=== PATIENT | female | born 1980 | race Caucasian/White ===

== ENCOUNTER 2024-10-31 02:19 | Outpatient (RCR) | payer BC, SELFPAY ==
[2024-10-17] MEDS: Normal Saline Flush 10 ML SYR IVP (10:35)
[2024-10-17 10:44] LABS: Abs Immature Grans 0.03 10^3/uL (0.0-0.06); HCT 31.6 % (36.0-46.0); HGB 9.8 g/dL (11.2-15.7); Immature Grans % 0.4 %; MCH 25.1 pg (27.0-33.0); MCHC 31.0 % (32.0-36.0); MCV 81 fL (80-95); MPV 9.1 fL (8.0-11.0); Platelet Count 267 10^3/uL (130-400); RBC 3.90 10^6/uL (3.93-5.22); WBC 7.17 10^3/uL (4.4-10.8)
[2024-10-17 10:58] LABS: ALT 25 U/L (14-59); AST 17 U/L (15-37); Albumin 3.6 g/dL (3.4-5.0); Alkaline Phosphatase 72 U/L (46-116); Anion Gap 11.9 mmol/L (3-11); BUN 21 mg/dL (7-18); Bilirubin, Total 0.5 mg/dL (0.2-1.0); CO2 27.1 mmol/L (21.0-32.0); Calcium 9.2 mg/dL (8.5-10.1); Chloride 102 mmol/L (98-107); Estimated GFR 92.54 (mL/min/1.73m2); Glucose 166 mg/dL (74-106); Potassium 3.5 mmol/L (3.5-5.1); Sodium 141 mmol/L (136-145); Total Protein 7.6 g/dL (6.4-8.2)
[2024-10-17 11:07] LABS: Anisocytosis 2+; Microcytosis 1+
[2024-10-17 22:38] LABS: CEA 1.5 ng/mL (See Note)
[2024-10-19 12:51] VITALS: BP 129/75; PULSE 71; RESP 16; TEMP 36.9; O2SAT 97
[2024-10-19] MEDS: Normal Saline Flush 10 ML SYR IVP (13:00)
[2024-10-31] MEDS: Normal Saline Flush 10 ML SYR IVP (10:47)
[2024-10-31 10:53] LABS: Abs Immature Grans 0.01 10^3/uL (0.0-0.06); HCT 28.5 % (36.0-46.0); HGB 8.9 g/dL (11.2-15.7); Immature Grans % 0.3 %; MCH 25.1 pg (27.0-33.0); MCHC 31.2 % (32.0-36.0); MCV 81 fL (80-95); MPV 9.5 fL (8.0-11.0); Platelet Count 204 10^3/uL (130-400); RBC 3.54 10^6/uL (3.93-5.22); RDW 21.5 % (11.7-14.6); RDW-SD 62.4 fL; WBC 3.72 10^3/uL (4.4-10.8)
[2024-10-31 11:10] LABS: Anisocytosis 2+
[2024-10-31 11:12] LABS: ALT 26 U/L (14-59); AST 18 U/L (15-37); Albumin 3.3 g/dL (3.4-5.0); Alkaline Phosphatase 70 U/L (46-116); Anion Gap 8.1 mmol/L (3-11); BUN 18 mg/dL (7-18); Bilirubin, Total 0.6 mg/dL (0.2-1.0); CO2 27.9 mmol/L (21.0-32.0); Calcium 9.0 mg/dL (8.5-10.1); Chloride 105 mmol/L (98-107); Estimated GFR 92.54 (mL/min/1.73m2); Glucose 210 mg/dL (74-106); Potassium 3.7 mmol/L (3.5-5.1); Sodium 141 mmol/L (136-145); Total Protein 6.8 g/dL (6.4-8.2)
[2024-10-31 17:59] LABS: CEA 0.9 ng/mL (See Note)
== END 2024-10-31 23:59 | disposition home or self-care (01) ==
LOC: INF 02:19
PROVIDERS: Nurse Practitioner Family; PCP Family Medicine; Visit Provider Internal Medicine Hematology & Oncology
DX: C20 Malignant neoplasm of rectum (principal)
CPT/HCPCS: 36591; 80053; 96523; 82378; 85025

== ENCOUNTER 2024-11-02 00:06 | Outpatient (RCR) | payer BC, SELFPAY ==
[2024-11-02 12:42] VITALS: BP 115/77; PULSE 83; RESP 20; TEMP 36.4; O2SAT 98
[2024-11-02] MEDS: Normal Saline Flush 10 ML SYR IVP (14:35)
== END 2024-12-01 23:59 | disposition home or self-care (01) ==
LOC: INF 00:06
PROVIDERS: PCP Family Medicine; Visit Provider Internal Medicine Hematology & Oncology
DX: Z45.2 Encounter for adjustment and management of vascular access device (principal)
CPT/HCPCS: 96523

== ENCOUNTER 2024-11-30 00:31 | Outpatient (RCR) | payer BC, SELFPAY ==
[2024-11-14 09:56] LABS: Abs Immature Grans 0.00 10^3/uL (0.0-0.06); HCT 33.4 % (36.0-46.0); HGB 10.7 g/dL (11.2-15.7); Immature Grans % 0.0 %; MCH 26.4 pg (27.0-33.0); MCHC 32.0 % (32.0-36.0); MCV 83 fL (80-95); MPV 9.1 fL (8.0-11.0); Platelet Count 213 10^3/uL (130-400); RBC 4.05 10^6/uL (3.93-5.22); RDW 19.9 % (11.7-14.6); RDW-SD 58.8 fL; WBC 4.70 10^3/uL (4.4-10.8)
[2024-11-14] MEDS: Normal Saline Flush 10 ML SYR IVP (10:01)
[2024-11-14 10:19] LABS: ALT 33 U/L (14-59); AST 25 U/L (15-37); Albumin 3.6 g/dL (3.4-5.0); Alkaline Phosphatase 82 U/L (46-116); Anion Gap 11.1 mmol/L (3-11); BUN 22 mg/dL (7-18); Bilirubin, Total 0.6 mg/dL (0.2-1.0); CO2 25.9 mmol/L (21.0-32.0); Calcium 9.4 mg/dL (8.5-10.1); Chloride 101 mmol/L (98-107); Estimated GFR 80.34 (mL/min/1.73m2); Glucose 152 mg/dL (74-106); Potassium 3.8 mmol/L (3.5-5.1); Sodium 138 mmol/L (136-145); Total Protein 7.4 g/dL (6.4-8.2)
[2024-11-14 12:40] LABS: Vitamin B12 548 pg/mL (193-986)
[2024-11-14 22:42] LABS: CEA 1.0 ng/mL (See Note)
[2024-11-16 10:17] VITALS: BP 118/79; PULSE 81; RESP 16; TEMP 36.5; O2SAT 97
[2024-11-16] MEDS: Normal Saline Flush 10 ML SYR IVP (10:28)
[2024-11-28] MEDS: Normal Saline Flush 10 ML SYR IVP (09:00)
[2024-11-28 09:22] LABS: Abs Immature Grans 0.02 10^3/uL (0.0-0.06); HCT 30.5 % (36.0-46.0); HGB 9.8 g/dL (11.2-15.7); Immature Grans % 0.5 %; MCH 27.4 pg (27.0-33.0); MCHC 32.1 % (32.0-36.0); MCV 85 fL (80-95); MPV 9.1 fL (8.0-11.0); Platelet Count 173 10^3/uL (130-400); RBC 3.58 10^6/uL (3.93-5.22); RDW 19.3 % (11.7-14.6); RDW-SD 59.5 fL; WBC 4.35 10^3/uL (4.4-10.8)
[2024-11-28 09:46] LABS: ALT 39 U/L (14-59); AST 31 U/L (15-37); Albumin 3.4 g/dL (3.4-5.0); Alkaline Phosphatase 74 U/L (46-116); Anion Gap 6.6 mmol/L (3-11); BUN 17 mg/dL (7-18); Bilirubin, Total 0.5 mg/dL (0.2-1.0); CO2 27.4 mmol/L (21.0-32.0); Calcium 9.2 mg/dL (8.5-10.1); Chloride 105 mmol/L (98-107); Estimated GFR 79.85 (mL/min/1.73m2); Glucose 168 mg/dL (74-106); Potassium 3.4 mmol/L (3.5-5.1); Sodium 139 mmol/L (136-145); Total Protein 6.8 g/dL (6.4-8.2)
[2024-11-29 09:17] LABS: CEA <0.5 ng/mL (See Note)
[2024-11-30 11:52] VITALS: BP 106/70; PULSE 83; RESP 18; TEMP 36.4; O2SAT 99
[2024-12-03] MEDS: Normal Saline Flush 10 ML SYR IVP (12:28)
== END 2024-12-01 23:59 | disposition home or self-care (01) ==
LOC: INF 00:31
PROVIDERS: Nurse Practitioner Family; PCP Family Medicine; Visit Provider Internal Medicine Hematology & Oncology
DX: G62.9 Polyneuropathy, unspecified (principal); C20 Malignant neoplasm of rectum; Z45.2 Encounter for adjustment and management of vascular access device
CPT/HCPCS: 36591; 80053; 96523; 82378; 82607; 85025

== ENCOUNTER 2024-12-28 00:09 | Outpatient (RCR) | payer BC, SELFPAY ==
[2024-12-12] MEDS: Normal Saline Flush 10 ML SYR IVP (10:11)
[2024-12-12 10:34] LABS: Abs Immature Grans 0.01 10^3/uL (0.0-0.06); HCT 30.4 % (36.0-46.0); HGB 9.8 g/dL (11.2-15.7); Immature Grans % 0.2 %; MCH 28.2 pg (27.0-33.0); MCHC 32.2 % (32.0-36.0); MCV 88 fL (80-95); MPV 9.7 fL (8.0-11.0); Platelet Count 177 10^3/uL (130-400); RBC 3.47 10^6/uL (3.93-5.22); RDW 18.6 % (11.7-14.6); RDW-SD 58.4 fL; WBC 5.06 10^3/uL (4.4-10.8)
[2024-12-12 10:53] LABS: ALT 46 U/L (14-59); AST 33 U/L (15-37); Albumin 3.2 g/dL (3.4-5.0); Alkaline Phosphatase 81 U/L (46-116); Anion Gap 7.3 mmol/L (3-11); BUN 20 mg/dL (7-18); Bilirubin, Total 0.5 mg/dL (0.2-1.0); CO2 26.7 mmol/L (21.0-32.0); Calcium 9.1 mg/dL (8.5-10.1); Chloride 105 mmol/L (98-107); Glucose 185 mg/dL (74-106); Potassium 3.7 mmol/L (3.5-5.1); Sodium 139 mmol/L (136-145); Total Protein 6.8 g/dL (6.4-8.2)
[2024-12-12 22:51] LABS: CEA 0.6 ng/mL (See Note)
[2024-12-14 10:29] VITALS: BP 121/81; PULSE 83; O2SAT 94
[2024-12-14] MEDS: Normal Saline Flush 10 ML SYR IVP (11:15)
[2024-12-26] MEDS: Normal Saline Flush 10 ML SYR IVP (07:50)
[2024-12-26 08:23] LABS: Abs Immature Grans 0.03 10^3/uL (0.0-0.06); HCT 31.2 % (36.0-46.0); HGB 9.9 g/dL (11.2-15.7); Immature Grans % 0.5 %; MCH 28.0 pg (27.0-33.0); MCHC 31.7 % (32.0-36.0); MCV 88 fL (80-95); MPV 9.4 fL (8.0-11.0); Platelet Count 195 10^3/uL (130-400); RBC 3.54 10^6/uL (3.93-5.22); RDW 18.6 % (11.7-14.6); RDW-SD 60.0 fL; WBC 6.27 10^3/uL (4.4-10.8)
[2024-12-26 08:47] LABS: ALT 33 U/L (14-59); AST 26 U/L (15-37); Albumin 3.2 g/dL (3.4-5.0); Alkaline Phosphatase 74 U/L (46-116); Anion Gap 9.7 mmol/L (3-11); BUN 17 mg/dL (7-18); Bilirubin, Total 0.5 mg/dL (0.2-1.0); CO2 25.3 mmol/L (21.0-32.0); Calcium 9.0 mg/dL (8.5-10.1); Chloride 105 mmol/L (98-107); Glucose 151 mg/dL (74-106); Potassium 3.7 mmol/L (3.5-5.1); Sodium 140 mmol/L (136-145); Total Protein 6.8 g/dL (6.4-8.2)
[2024-12-26 18:36] LABS: CEA 0.7 ng/mL (See Note)
[2024-12-28 08:57] VITALS: BP 115/81; PULSE 87; RESP 14; TEMP 36.5; O2SAT 97
[2024-12-28] MEDS: Normal Saline Flush 10 ML SYR IVP (09:10)
== END 2024-12-31 23:59 | disposition home or self-care (01) ==
LOC: INF 00:09
PROVIDERS: Nurse Practitioner Family; PCP Family Medicine; Visit Provider Internal Medicine Hematology & Oncology
DX: C20 Malignant neoplasm of rectum (principal); Z45.2 Encounter for adjustment and management of vascular access device
CPT/HCPCS: 36591; 80053; 96523; 82378; 85025

== ENCOUNTER 2025-01-25 00:18 | Outpatient (RCR) | payer BC, SELFPAY ==
[2025-01-09] MEDS: Normal Saline Flush 10 ML SYR IVP (09:50)
[2025-01-09 10:04] LABS: Abs Immature Grans 0.01 10^3/uL (0.0-0.06); HCT 31.2 % (36.0-46.0); HGB 10.4 g/dL (11.2-15.7); Immature Grans % 0.2 %; MCH 28.9 pg (27.0-33.0); MCHC 33.3 % (32.0-36.0); MCV 87 fL (80-95); MPV 9.5 fL (8.0-11.0); Platelet Count 178 10^3/uL (130-400); RBC 3.60 10^6/uL (3.93-5.22); RDW 18.6 % (11.7-14.6); RDW-SD 59.3 fL; WBC 5.83 10^3/uL (4.4-10.8)
[2025-01-09 10:18] LABS: ALT 25 U/L (14-59); AST 21 U/L (15-37); Albumin 3.3 g/dL (3.4-5.0); Alkaline Phosphatase 75 U/L (46-116); Anion Gap 11.9 mmol/L (3-11); BUN 19 mg/dL (7-18); Bilirubin, Total 0.5 mg/dL (0.2-1.0); CO2 24.1 mmol/L (21.0-32.0); Calcium 9.5 mg/dL (8.5-10.1); Chloride 103 mmol/L (98-107); Estimated GFR 79.85 (mL/min/1.73m2); Glucose 150 mg/dL (74-106); Potassium 3.8 mmol/L (3.5-5.1); Sodium 139 mmol/L (136-145); Total Protein 6.9 g/dL (6.4-8.2)
[2025-01-09 19:35] LABS: CEA <0.5 ng/mL (See Note)
[2025-01-11 11:32] VITALS: BP 118/80; PULSE 83; RESP 16; TEMP 36.7; O2SAT 98
[2025-01-11] MEDS: Normal Saline Flush 10 ML SYR IVP (11:42)
[2025-01-23 10:01] LABS: Abs Immature Grans 0.02 10^3/uL (0.0-0.06); HCT 31.5 % (36.0-46.0); HGB 10.2 g/dL (11.2-15.7); Immature Grans % 0.3 %; MCH 29.1 pg (27.0-33.0); MCHC 32.4 % (32.0-36.0); MCV 90 fL (80-95); MPV 9.4 fL (8.0-11.0); Platelet Count 170 10^3/uL (130-400); RBC 3.51 10^6/uL (3.93-5.22); RDW 18.7 % (11.7-14.6); RDW-SD 61.3 fL; WBC 6.42 10^3/uL (4.4-10.8)
[2025-01-23] MEDS: Normal Saline Flush 10 ML SYR IVP (10:12)
[2025-01-23 10:17] LABS: ALT 49 U/L (14-59); AST 30 U/L (15-37); Albumin 3.4 g/dL (3.4-5.0); Alkaline Phosphatase 78 U/L (46-116); Anion Gap 12.4 mmol/L (3-11); BUN 9 mg/dL (7-18); Bilirubin, Total 0.7 mg/dL (0.2-1.0); CO2 26.6 mmol/L (21.0-32.0); Calcium 9.3 mg/dL (8.5-10.1); Chloride 101 mmol/L (98-107); Estimated GFR 79.85 (mL/min/1.73m2); Glucose 156 mg/dL (74-106); Potassium 3.6 mmol/L (3.5-5.1); Sodium 140 mmol/L (136-145); Total Protein 7.1 g/dL (6.4-8.2)
[2025-01-23 17:58] LABS: CEA <0.5 ng/mL (See Note)
[2025-01-25 11:36] VITALS: BP 103/72; PULSE 89; RESP 16; TEMP 36.5; O2SAT 98
[2025-01-25] MEDS: Normal Saline Flush 10 ML SYR IVP (12:19)
== END 2025-01-31 23:59 | disposition home or self-care (01) ==
LOC: INF 00:18
PROVIDERS: Nurse Practitioner Family; PCP Family Medicine; Visit Provider Internal Medicine Hematology & Oncology
DX: Z45.2 Encounter for adjustment and management of vascular access device (principal); C20 Malignant neoplasm of rectum
CPT/HCPCS: 36415; 36591; 80053; 96523; 82378; 85025